=== PATIENT | female | born 1955 | race Caucasian/White ===

== ENCOUNTER 2020-06-15 17:26 | Emergency (ER) | payer OTHER ==
[2020-06-15] MEDS ORDERED: Nitroglycerin 0.4 MG Tab.SL ONE (17:48)
[2020-06-15] MEDS ORDERED: Aspirin 81 MG Tab.Chew ONE (17:48)
[2020-06-15] MEDS ORDERED: Aspirin 81 MG Tab.Chew PO ONE (17:49)
[2020-06-15] MEDS ORDERED: Nitroglycerin 0.4 MG Tab.SL SL PRN (17:50)
[2020-06-15] MEDS ORDERED: Sodium Chloride 0.9% 1,000 ML ONE (17:57)
--- NOTE | 2020-06-15 18:16 | EDM.PDOC ---
ED HPI GENERAL MEDICAL PROBLEM - General Chief Complaint: Chest Pain Stated Complaint: chest pressure Time Seen by Provider: 06/15/20 17:50 Source of Information: Reports: Patient, Significant Other History Limitations: Reports: No Limitations - History of Present Illness INITIAL COMMENTS - FREE TEXT/NARRATIVE: Patient presents with 1/10 chest pressure under mid-sternum that started while she was sitting playing a game. She mentioned it when she came in for IV antibiotics in her PICC line (treating a knee infection post TKA hardware removal). She had similar pain a week ago that lasted a couple hours. Has some left shoulder pain that could be her chronic arthritis shoulder pain, a little worse than usual. Denies pain in neck, jaw or arm. Denies diaphoresis, lighthe adedness, vomiting; has nausea constantly from the antibiotic she is getting. Zofran helps this. Treatments [employer]: Reports: EKG Chest Pain Score (Numeric/FACES): 2 - Related Data Allergies Allergy/AdvReac Type Severity Reaction Status Date / Time No Known Drug Allergies Allergy Cannot Verified 06/15/20 18:17 Remember Home Meds: Home Meds Etodolac 400 mg PO BIDMEALS 09/10/15 [History] Multivit-Min/FA/Lycopen/Lutein [Centrum Silver Tablet] 1 each PO DAILY 09/10/15 [History] Aspirin [Ecotrin EC] 81 mg PO DAILY #90 tablet. 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 Dermatologic History: Reports: None - Infectious Disease History Infectious Disease History: Reports: Chicken Pox, Measles, Mumps, Other (See Below) Other Infectious Disease History: Infectious hepatitis as a child - Past Surgical History HEENT Surgical History: Reports: Tonsillectomy Cardiovascular Surgical History: Reports: None GI Surgical History: Reports: Cholecystectomy, Colonoscopy Female Surgical History: Reports: Hysterectomy, Salpingo-Oophorectomy Endocrine Surgical History: Reports: None Musculoskeletal Surgical History: Reports: Knee Replacement Dermatological Surgical History: Reports: Skin Biopsy Social & Family History - Family History Cardiac: Reports: Hypertension, Other (See Below) Other Cardiac Family History: Mother had HTN. - Caffeine Use Caffeine Use: Reports: Coffee ED ROS GENERAL - Review of Systems Review Of Systems: See Below Constitutional: Denies: Fever, Chills, Malaise, Weakness HEENT: Denies: Ear Pain, Throat Pain, Vision Change Respiratory: Denies: Shortness of Breath, Cough Cardiovascular: Reports: Chest Pain. Denies: Lightheadedness, Syncope GI/Abdominal: Denies: Abdominal Pain, Diarrhea, Vomiting : Denies: Dysuria, Flank Pain Musculoskeletal: Reports: Shoulder Pain. 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 Denies: Confusion, Dizziness, Headache, Seizure, Syncope, Trouble Speaking Psychiatric: Denies: Agitation, Anxiety, Confusion ED EXAM, GENERAL - Physical Exam Exam: See Below Exam Limited By: No Limitations General Appearance: Alert, WD/WN, No Apparent Distress Eye Exam: Bilateral Eye: EOMI, Normal Inspection, PERRL Ears: Normal External Exam, Hearing Grossly Normal Nose: Normal Inspection, No Blood Throat/Mouth: Normal Inspection, Normal Lips, Normal Voice, No Airway Compromise Head: Atraumatic, Normocephalic Neck: Normal Inspection, Full Range of Motion Respiratory/Chest: No Respiratory Distress, Lungs Clear, Normal Breath Sounds, No Accessory Muscle Use, Other (palpation of right mid-sternal border definitely reproduces the pain she presented with; this is consistent with costochond ritis; could possibly be a rib fracture but history leans toward the former.) Cardiovascular: Normal Peripheral Pulses, Regular Rate, Rhythm, No Edema, No Murmur GI/Abdominal: Soft, Non-Tender Back Exam: Normal Inspection, Full Range of Motion. No: CVA Tenderness (L), CVA Tenderness (R) Extremities: Normal Inspection (left leg; right has knee brace on ), No Pedal Edema Neurological: Alert, Oriented, Normal Cognition, No Motor/Sensory Deficits Psychiatric: Normal Affect, Normal Mood Skin Exam: Warm, Dry, Intact, Normal Color, No Rash Course - Vital Signs Last Recorded V/S: Last Vital Signs Temp 97.8 F 06/15/20 17:30 Pulse 69 06/15/20 17:30 Resp 20 06/15/20 17:30 BP 108/67 06/15/20 17:53 Pulse Ox 96 06/15/20 17:30 - Orders/Labs/Meds Orders: Active Orders 24 hr Category Date Time Status EKG Documentation Completion [RC] ASDIRECTED Care 06/15/20 17:37 Active Nitroglycerin [Nitrostat] Med 06/15/20 17:50 Active 0.4 mg SL Q5M PRN EKG 12 Lead [EK] Stat Ther 06/15/20 17:36 Ordered Medication Orders Nitroglycerin (Nitroglycerin 0.4 Mg Tab.Sl) 0.4 mg SL Q5M PRN PRN Reason: Chest Pain Last Admin: 06/15/20 17:53 Dose: 0.4 mg Documented by: DARIO Labs: Laboratory Tests 06/15/20 06/15/20 Range/Units 17:30 17:30 WBC 11.52 H (5.00-10.00) 10^3/uL RBC 4.68 (3.80-5.50) 10^6/uL Hgb 10.9 L (12.0-16.0) g/dL Hct 35.4 L (37.0-47.0) % MCV 75.6 L (82.0-92.0) fL MCH 23.3 L (27.0-31.0) pg MCHC 30.8 L (32.0-36.0) g/dL RDW 20.1 H (11.5-14.5) % Plt Count 389 (150-400) 10^3/uL MPV 9.7 (7.4-10.4) fL Immature Gran % (Auto) 0.1 (0.0-5.0) % Neut % (Auto) 56.9 (50.0-70.0) % Lymph % (Auto) 29.0 (20.0-40.0) % Lawrence % (Auto) 10.4 H (2.0-8.0) % Eos % (Auto) 2.9 (1.0-3.0) % Baso % (Auto) 0.7 (0.0-1.0) % Neut # (Auto) 6.56 (2.50-7.00) 10^3/uL Lymph # (Auto) 3.34 (1.00-4.00) 10^3/uL Lawrence # (Auto) 1.20 H (0.10-0.80) 10^3/uL Eos # (Auto) 0.33 H (0.10-0.30) 10^3/uL Baso # (Auto) 0.08 (0.00-0.10) 10^3/uL Immature Gran # (Auto) 0.01 (0.00-0.50) 10^3/uL Sodium 144 (136-145) mmol/L Potassium 4.1 (3.5-5.1) mmol/L Chloride 108 H (98-107) mmol/L Carbon Dioxide 27.2 (21.0-32.0) mmol/L Anion Gap 12.9 (5-15) mmol/L BUN 16 (7-18) mg/dL Creatinine 0.78 (0.51-1.17) mg/dL Est Cr Clr Drug Dosing 67.31 mL/min Estimated GFR (MDRD) > 60 mL/min Glucose 90 (70-140) mg/dL Calcium 7.6 L (8.7-10.3) mg/dL Troponin I < 0.017 (0.000-0.056) ng/mL Meds: Medications Generic Name Dose Route Start Last Admin Trade Name Freq PRN Reason Stop Dose Admin Nitroglycerin 0.4 mg 06/15/20 17:50 06/15/20 17:53 Nitroglycerin 0.4 Mg Tab.Sl SL 0.4 mg Q5M PRN Administration Chest Pain Discontinued Medications Generic Name Dose Route Start Last Admin Trade Name Freq PRN Reason Stop Dose Admin Aspirin Confirm 06/15/20 17:48 06/15/20 18:00 Aspirin 81 Mg Tab.Chew Administered 06/15/20 17:49 Not Given Dose 324 mg .ROUTE .STK-MED ONE Aspirin 324 mg 06/15/20 17:49 06/15/20 17:53 Aspirin 81 Mg Tab.Chew PO 06/15/20 17:50 324 mg ONETIME ONE Administration Sodium Chloride Confirm 06/15/20 17:57 Normal Saline Administered 06/15/20 17:58 Dose 1,000 mls @ as directed .ROUTE .STK-MED ONE Nitroglycerin Confirm 06/15/20 17:48 06/15/20 18:00 Nitroglycerin 0.4 Mg Tab.Sl Administered 06/15/20 17:49 Not Given Dose 0.4 mg .ROUTE .STK-MED ONE - Re-Assessments/Exams Free Text/Narrative Re-Assessment/Exam: 06/15/20 19:40 EKG and troponin good. With the pain in the chest wall and a negative troponin drawn 4.5 hours after onset, I feel we can reliably rule out cardiac etiology. Discussed findings and recommendations with patient and her . Discharged to home in stable condition. Departure - Departure Time of Disposition: 19:34 Disposition: Home, Self-Care 01 Condition: Good Clinical Impression: Anterior chest wall pain Instructions: Chest Wall Pain, [id number] Forms: ED Department Discharge Additional Instructions: This pain in the chest wall may last for days or even a couple weeks but shouldn't be anything to worry about. Normally it responds to NSAIDS but since you can't take those, you'll just have to let it resolve on its own, which is okay. If this worsens follow up with your PCP for recheck and possibly xray. Sepsis Event Note (ED) - Evaluation Sepsis Screening Result: No Definite Risk - Focused Exam Vital Signs: Vital Signs Temp Pulse Resp BP BP Pulse Ox 06/15/20 17:53 108/67 06/15/20 17:30 97.8 F 69 20 154/80 H 96 - My Orders Last 24 Hours: My Active Orders 06/15/20 17:36 EKG 12 Lead [EK] Stat 06/15/20 17:37 EKG Documentation Completion [RC] ASDIRECTED 06/15/20 17:50 Nitroglycerin [Nitrostat] 0.4 mg SL Q5M PRN - Assessment/Plan Last 24 Hours: My Active Orders 06/15/20 17:36 EKG 12 Lead [EK] Stat 06/15/20 17:37 EKG Documentation Completion [RC] ASDIRECTED 06/15/20 17:50 Nitroglycerin [Nitrostat] 0.4 mg SL Q5M PRN
[2020-06-15 19:00] LABS: ANION GAP 12.9 mmol/L (5-15); CHLORIDE,CL 108 mmol/L (98-107); SODIUM,NA 144 mmol/L (136-145)
[2020-06-15] MEDS ORDERED: Alteplase 2 MG Vial IVPUSH ONE (20:00)
[2020-06-15] MEDS ORDERED: Water For Injection, Sterile 20 ML ONE (20:00)
[2020-06-16 00:24] VITALS: BP 142/78; PULSE 72
== END 2020-06-15 20:50 | disposition home or self-care (01) ==
LOC: KA.ED 17:26
DX: R07.89 Other chest pain (principal); Z79.82 Long term (current) use of aspirin; Z79.899 Other long term (current) drug therapy
CPT/HCPCS: 80048; 84484; 85025; 93005; 96374; 99284; 99285-25; A9270-GY; J2997; J7030

== ENCOUNTER 2023-06-06 09:04 | Day surgery (SDC) | payer MEDICARE, BC ==
[~2023-06-06 09:04] MED LIST: Sodium Chloride 0.9% 10 ML Syringe FLUSH PRN
[2023-06-06] MEDS: Lactated Ringers 1,000 ML IV SCH (09:20)
[2023-06-06] MEDS ORDERED: Propofol 200 MG/20 ML SDV ONE (09:55)
[2023-06-06] MEDS ORDERED: Midazolam 1 MG/ML 2 ML SDV ONE (09:55)
== END 2023-06-06 12:12 | disposition home or self-care (01) ==
LOC: KA.SDS 09:04
PROVIDERS: ATTEND Family Medicine
DX: Z12.11 Encounter for screening for malignant neoplasm of colon (principal); K64.8 Other hemorrhoids; Z80.0 Family history of malignant neoplasm of digestive organs; K21.9 Gastro-esophageal reflux disease without esophagitis; E78.2 Mixed hyperlipidemia; F33.40 Major depressive disorder, recurrent, in remission, unspecified; E66.9 Obesity, unspecified; Z68.41 Body mass index [BMI] 40.0-44.9, adult; Z87.891 Personal history of nicotine dependence; Z79.899 Other long term (current) drug therapy
CPT/HCPCS: J2250; J2704; J3490; J7120